=== PATIENT | male | born 1980 | race Caucasian/White ===

== ENCOUNTER 2017-04-09 10:05 | Emergency (ER) | payer OTHER ==
[2017-04-09 10:17] VITALS: BP 143/78; PULSE 74; TEMP 98; BMI 29.1
[2017-04-09] MEDS ORDERED: ERYTHROMYCIN 0.5% OPHTHALMIC OINTMENT 3.5 GM TUBE OD STA (10:25)
[2017-04-09] MEDS ORDERED: ERYTHROMYCIN 0.5% OPHTHALMIC OINTMENT 3.5 GM TUBE ONE (10:28)
--- NOTE | 2017-04-09 10:44 | PDOC ---
History of Present Illness - General Chief Complaint: Eye Problem Stated Complaint: EYE PROBLEM Time Seen by Provider: 04/09/17 10:20 History Source: Patient Exam Limitations: No Limitations - History of Present Illness Initial Comments: 04/09/17 10:25 36 yr male with right eye injury 2 days go, states he got dust in the eye at work. pt used irrigation to flush out eye. Pt states no pain no tearing no vision changes. Pt woke up with crusted discharge. Past History - Past Medical History Allergies/Adverse Reactions: Allergies Allergy/AdvReac Type Severity Reaction Status Date / Time No Known Allergies Allergy Verified 04/09/17 10:10 Home Medications: Ambulatory Orders Sulfacetamide Sodium 10% [Bleph-10] 2 drop OD Q6H #1 bottle 04/09/17 COPD: No - Suicide/Smoking/Psychosocial Hx Smoking History: Never smoked *Physical Exam - Vital Signs Last Vital Signs Temp Pulse Resp BP Pulse Ox 98 F 74 18 143/78 99 04/09/17 10:07 04/09/17 10:07 04/09/17 10:07 04/09/17 10:07 04/09/17 10:07 - Physical Exam General Appearance: Yes: Nourished, Appropriately Dressed HEENT: positive: EOMI, CISCO, Normal ENT Inspection, TMs Normal, Other (right eye with yellow/[place] crusted discharge, mild erythema to upper lid. no conjunctival redness or irriation noted. ) Neck: positive: Supple Musculoskeletal: positive: Normal Inspection Extremity: positive: Normal Capillary Refill, Normal Inspection, Normal Range of Motion Integumentary: positive: Normal Color, Dry, Warm Neurologic: positive: Fully Oriented, Alert, Normal Mood/Affect, Normal Response , Motor Strength 5/5 Medical Decision Making - Medical Decision Making 04/09/17 10:27 cc: right eye injury 2 days ago got dust in the eye pt irrigated the eye feels better however today woke up with crusted discharge no photophobia no pain or tearing visual acuity is 20/20 both eyes 04/09/17 10:44 *DC/Admit/Observation/Transfer Diagnosis at time of Disposition: Corneal irritation of right eye - Discharge Dispostion Disposition: HOME Condition at time of disposition: Good - Prescriptions Prescriptions: Sulfacetamide Sodium 10% [Bleph-10] 2 drop OD Q6H #1 bottle - Referrals Referrals: Luh Merritt [Primary Care Provider] - Abad Meredith MD [Staff Physician] - - Patient Instructions Additional Instructions: use the eye drops as directed for 7 days follow with the eye doctor Dr. Rosas in 1-2 days for follow up - Post Discharge Activity
== END 2017-04-09 11:29 | disposition home or self-care (01) ==
LOC: JER 10:05 → JERFT 10:05
PROC: 4A07X0Z Measurement of Visual Acuity, External Approach (ICD-10-PCS; principal; 2017-04-09)
DX: S05.8X1A Other injuries of right eye and orbit, initial encounter (principal); T15.81XA Foreign body in other and multiple parts of external eye, right eye, initial encounter; X58.XXXA Exposure to other specified factors, initial encounter; Y93.89 Activity, other specified; Y92.89 Other specified places as the place of occurrence of the external cause
CPT/HCPCS: 99173; 99281-25

== ENCOUNTER 2018-05-20 15:33 | Emergency (ER) | payer OTHER ==
[2018-05-20 15:38] VITALS: BP 151/89; PULSE 72; TEMP 97.6; BMI 30.9
[2018-05-20] MEDS ORDERED: IBUPROFEN 600 MG TABLET (FP) PO ONE ×2 (16:37→16:39)
--- NOTE | 2018-05-20 16:37 | PDOC ---
History of Present Illness - General Chief Complaint: Pain Stated Complaint: LT HAND PAIN Time Seen by Provider: 05/20/18 15:58 History Source: Patient Exam Limitations: No Limitations Past History - Travel Traveled outside of the country in the last 30 days: No Close contact w/someone who was outside of country & ill: No - Past Medical History Allergies/Adverse Reactions: Allergies Allergy/AdvReac Type Severity Reaction Status Date / Time No Known Allergies Allergy Verified 05/20/18 15:38 Home Medications: Ambulatory Orders Ibuprofen 600 mg PO Q6H #30 tablet 05/20/18 COPD: No - Suicide/Smoking/Psychosocial Hx Smoking History: Never smoked Have you smoked in the past 12 months: No Information on smoking cessation initiated: No Hx Alcohol Use: No Drug/Substance Use Hx: No Review of Systems - Review of Systems Able to Perform ROS?: Yes Comments:: 05/20/18 17:22 CONSTITUTIONAL: Absent: fever, chills, diaphoresis, generalized weakness, malaise, loss of appetite MUSCULOSKELETAL: Present: L wrist pain Absent: myalgia, joint swelling SKIN: Absent: rash, itching, pallor NEUROLOGIC: Absent: headache, focal weakness or paresthesias, dizziness, unsteady gait, seizure, mental status changes, bladder or bowel incontinence PSYCHIATRIC: Absent: anxiety, depression, suicidal or homicidal ideation, hallucinations. Is the patient limited Trinidadian proficient: No *Physical Exam - Vital Signs Last Vital Signs Temp Pulse Resp BP Pulse Ox 97.6 F 72 18 151/89 98 05/20/18 15:35 05/20/18 15:35 05/20/18 15:35 05/20/18 15:35 05/20/18 15:35 - Physical Exam Comments: 05/20/18 17:22 GENERAL: The patient is awake, alert, and fully oriented, in no acute distress. HEAD: Normal with no signs of trauma. EYES: Pupils equal, round and reactive to light, extraocular movements intact, sclera anicteric, conjunctiva clear. EXTREMITIES: No ttp of the L wrist on exam. Pain with flexion and extension of the L wrist, able to perform opposition movements with all fingers. Normal range of motion, no edema. NEUROLOGICAL: Normal speech, normal gait. PSYCH: Normal mood, normal affect. SKIN: Warm, Dry, normal turgor, no rashes or lesions noted. Medical Decision Making - Medical Decision Making 05/20/18 17:36 The patient is a 38-year-old male with no past medical history who presents to the ER today with left wrist pain. Patient is right-hand dominant. Patient states that he was running playing soccer with his kids when he fell and landed with an outstretched wrist. He states that it hurts to move his wrist. Denies numbness and tingling to the extremity and weakness the affected extremity. A/P: Left wrist pain. On exam no tenderness to palpation of the left wrist. Pain with flexion and extension X-ray of left wrist obtained. Wet read with no acute fractures. Most likely wrist sprain. Mariusz wrap applied and Motrin given. Discharge home with orthopedic follow-up. I discussed the physical exam findings, ancillary test results and final diagnoses with the patient. I answered all of the patient's questions. The patient was satisfied with the care received and felt comfortable with the discharge plan and treatment plan. The Patient agrees to follow up with the primary care physician/specialist within 24-72 hours. Return precautions were given. *DC/Admit/Observation/Transfer Diagnosis at time of Disposition: Wrist pain, left - Discharge Dispostion Disposition: HOME Condition at time of disposition: Stable Decision to Admit order: No - Prescriptions Prescriptions: Ibuprofen 600 mg PO Q6H #30 tablet - Referrals Referrals: Luh Merritt [Primary Care Provider] - Mariano Rao MD [Staff Physician] - - Patient Instructions Printed Discharge Instructions: DI for Wrist Sprain Additional Instructions: You sprained your wrist. Your x-ray was negative for broken bones. Please keep your wrist elevated while at rest above the level of your heart to reduce swelling. You may take Motrin 600 mg every 6 hours to help reduce pain and swelling. You may buy a wrist splint at the pharmacy to help with your pain. If you cannot find it, as a pharmacist for help. Please ice the area for 20 minute intervals at least 5 times a day to help reduce swelling. Please wear the Mariusz wrap. Please follow-up with orthopedics this week if your symptoms are not improving. Return to the emergency department if you have worsening pain, or unable to walk , numbness and tingling of the foot, or had any changes in her symptoms. - Post Discharge Activity Forms/Work/School Notes: Back to Work
== END 2018-05-20 17:32 | disposition home or self-care (01) ==
LOC: JERFT 15:33
DX: S63.502A Unspecified sprain of left wrist, initial encounter (principal); W18.39XA Other fall on same level, initial encounter; Y93.66 Activity, soccer; Y92.39 Other specified sports and athletic area as the place of occurrence of the external cause; Y99.8 Other external cause status
CPT/HCPCS: 73110-TC-LT-FY; 73130-TC-LT-FY; 99281-25

== ENCOUNTER 2020-10-29 09:17 | Emergency (ER) | payer OTHER ==
[2020-10-29 09:27] VITALS: BP 131/88; PULSE 70; TEMP 97.9; BMI 34.7
[2020-10-29] MEDS ORDERED: FLUORESCEIN NA 1 EA STRIP ONE (09:44)
[2020-10-29] MEDS ORDERED: TETRACAINE 0.5% OPHTH SOLN 2 ML BOTTLE ONE (09:44)
== END 2020-10-29 10:07 | disposition home or self-care (01) ==
LOC: JERFT 09:17
DX: S05.01XA Injury of conjunctiva and corneal abrasion without foreign body, right eye, initial encounter (principal)
CPT/HCPCS: 99283-25

== ENCOUNTER 2021-04-30 14:16 | Emergency (ER) | payer OTHER ==
[2021-04-30 14:44] VITALS: BP 141/81; PULSE 80; BMI 34.7
[2021-04-30 14:45] VITALS: TEMP 97.9
[2021-04-30] MEDS ORDERED: DIPHTH,PERTUSS(ACELL),TET 0.5 ML DISP.SYRIN IM ONE ×2 (17:17→17:25)
== END 2021-04-30 17:24 | disposition home or self-care (01) ==
LOC: JERFT 14:16
PROC: 3E0234Z Introduction of Serum, Toxoid and Vaccine into Muscle, Percutaneous Approach (ICD-10-PCS; principal; 2021-04-30)
PROC: 0HQGXZZ Repair Left Hand Skin, External Approach (ICD-10-PCS; 2021-04-30)
DX: S61.211A Laceration without foreign body of left index finger without damage to nail, initial encounter (principal); W26.0XXA Contact with knife, initial encounter; Y93.G1 Activity, food preparation and clean up
CPT/HCPCS: 12001-25; 90471; 90715; 99284-25